=== PATIENT | male | born 1940 | race Caucasian/White ===

== ENCOUNTER 2019-04-01 10:45 | Emergency (ER) | payer OTHER ==
[~2019-04-01] VITALS: Ht 180.3 cm; Wt 106.1 kg
[2019-04-01 10:45] VITALS: BP_SYST 145
[2019-04-01] MEDS ORDERED: BACITRACIN 1 GM OINT TP ONE ×2 (11:45→11:52)
[2019-04-01 12:00] VITALS: BP_SYST 140
== END 2019-04-01 12:00 | disposition home or self-care (01) ==
LOC: SED 10:45
DX: S61.012A Laceration without foreign body of left thumb without damage to nail, initial encounter (principal); R03.0 Elevated blood-pressure reading, without diagnosis of hypertension; Z95.1 Presence of aortocoronary bypass graft; Z86.79 Personal history of other diseases of the circulatory system; Z90.49 Acquired absence of other specified parts of digestive tract; Z85.46 Personal history of malignant neoplasm of prostate; W25.XXXA Contact with sharp glass, initial encounter; Y93.89 Activity, other specified; Y92.89 Other specified places as the place of occurrence of the external cause; Y99.8 Other external cause status
CPT/HCPCS: 99283

== ENCOUNTER 2021-06-16 14:07 | Emergency (ER) | payer OTHER ==
[~2021-06-16] VITALS: Ht 180.3 cm; Wt 111.1 kg
[2021-06-16 14:15] VITALS: BP_SYST 173
--- NOTE | 2021-06-16 14:15 | NUR ---
Patient to ER bed 5 to gown for evaluation. Side rails up.
--- NOTE | 2021-06-16 14:30 | NUR ---
BREE Adamson at bedside examining patient.
[2021-06-16] MEDS ORDERED: KETOROLAC TROMETHAMINE 15 MG VIAL IM ONE (14:45)
[2021-06-16 14:51] LABS: BASOPHILS % (AUTO) 0.5 % (0.0-2.0); EOSINOPHILS # (AUTO) 0.1 K/uL (0.0-0.4); EOSINOPHILS % (AUTO) 1.9 % (0.0-4.0); HEMATOCRIT 36.1 % (36-54); HEMOGLOBIN 12.2 g/dL (14.0-18.0); LYMPHOCYTES # (AUTO) 2.1 K/uL (1.0-5.5); LYMPHOCYTES % (AUTO) 28.5 % (20.5-51.5); MEAN CORPUSCULAR HEMOGLOBIN 30 pg (27-31); MEAN CORPUSCULAR HGB CONC 34 % (32-36); MEAN CORPUSCULAR VOLUME 88 fL (79.0-98.0); MONOCYTES # (AUTO) 0.6 K/uL (0.0-1.0); MONOCYTES % (AUTO) 8.3 % (1.7-9.3); NEUTROPHILS # (AUTO) 4.4 K/uL (1.8-7.7); NEUTROPHILS % (AUTO) 60.8 % (40.0-70.0); PLATELET COUNT (AUTO) 183 K/uL (130-430); RED CELL DISTRIBUTION WIDTH 15.5 % (9.0-15.0); WHITE BLOOD COUNT (AUTO) 7.2 K/uL (4.8-10.8)
[2021-06-16 15:04] LABS: ANION GAP 6 (5-15); CALCIUM 8.9 mg/dL (8.4-11.0); CHLORIDE 96 mmol/L (98-107); CREATININE 0.89 mg/dL (0.55-1.30); GLUCOSE 126 mg/dL (70-99); POTASSIUM 5.3 mmol/L (3.5-5.1); SODIUM SERUM 131 mmol/L (136-145); UREA NITROGEN, BLOOD 18 mg/dL (8-21)
[2021-06-16 15:17] LABS: ALANINE AMINOTRANSFERASE 30 U/L (12-78); ALBUMIN 3.3 g/dL (3.4-4.8); ASPARTATE AMINOTRANSFERASE 26 U/L (10-37); BILIRUBIN,DIRECT 0.2 mg/dL (0.0-0.3); LIPASE 168 U/L (73-393); TOTAL BILIRUBIN 0.4 mg/dL (0.0-1.0)
--- NOTE | 2021-06-16 15:35 | NUR ---
Patient transported to radiology via GURNEY, accompanied by WIRER MAINTENANCE,
[2021-06-16] MEDS ORDERED: NAPR-688 PO (16:29)
[2021-06-16 16:37] VITALS: BP_SYST 173
--- NOTE | 2021-06-16 16:38 | NUR ---
Patient given written and verbal discharge instructions and verbalizes understanding. ER MD discussed with patient the results and treatment provided. Patient in stable condition. ID arm band removed. Rx of NAPROXEN given. Patient educated on pain management and to follow up with PMD. Pain Scale 3/10. Opportunity for questions provided and answered. Medication side effect fact sheet provided.
== END 2021-06-16 16:38 | disposition home or self-care (01) ==
LOC: SED 14:07
DX: M54.5 Low back pain (principal); Z79.899 Other long term (current) drug therapy
CPT/HCPCS: 36415; 74176; 76376; 80048; 80076; 83690; 85025; 96372; 99284; J1885

== ENCOUNTER 2022-06-07 01:07 | Inpatient (IN) | payer OTHER ==
[~2022-06-07] VITALS: Ht 180.3 cm; Wt 104.3 kg
[~2022-06-07 01:07] MED LIST: NAPR-688 PO
--- NOTE | 2022-06-07 01:55 | NUR ---
Pt to ER w/ c/o LLQ abdominal pain 8/10 x 2 hours. Denies n/v/d, denies fevers. Pt ambulates withs strong steady gait. Normal skin color for ethnicity.
[2022-06-07 01:57] VITALS: BP_SYST 86
--- NOTE | 2022-06-07 02:03 | NUR ---
MD Corea and CHARLEE made aware of patient's blood pressure. Ensured appropriate cuff size and placement.
--- NOTE | 2022-06-07 03:00 | NUR ---
LATE ENTRY: Patient received awake, alert x 4. No s/s of distress. Breathing is even and unlabored, denies shortness of breathe. No s/s of active bleeding. Patient still reports left upper quadrant abdominal pain rated 3-4/10 and stated it is tolerable and better from before. Initially patient's BP was on the 80's but now on the 90's -100's. The rest of the vital signs are within acceptable range.
--- NOTE | 2022-06-07 03:20 | NUR ---
Pt placed in bed 1 and report given to Yao GARCIA. Pt placed on quality assurance monitor body and pulse oximetry.
[2022-06-07] MEDS ORDERED: MAG HYDROX/AL HYDROX/SIMETH 30 ML, LIDOCAINE VISCOUS 2% 15ML (PO) 15 ML, DICYCLOMINE HC... PO ONE ×3 (04:00)
--- NOTE | 2022-06-07 04:15 | NUR ---
Pt was taken to Radiology for CT Abdomen.
[2022-06-07 04:21] LABS: BASOPHILS % (AUTO) 0.5 % (0.0-2.0); EOSINOPHILS # (AUTO) 0.2 K/uL (0.0-0.4); HEMOGLOBIN 13.3 g/dL (14.0-18.0); LYMPHOCYTES # (AUTO) 1.7 K/uL (1.0-5.5); LYMPHOCYTES % (AUTO) 21.1 % (20.5-51.5); MEAN CORPUSCULAR HEMOGLOBIN 32 pg (27-31); MEAN CORPUSCULAR HGB CONC 35 % (32-36); MEAN CORPUSCULAR VOLUME 91 fL (79.0-98.0); MONOCYTES # (AUTO) 0.5 K/uL (0.0-1.0); MONOCYTES % (AUTO) 6.4 % (1.7-9.3); NEUTROPHILS # (AUTO) 5.8 K/uL (1.8-7.7); PLATELET COUNT (AUTO) 225 K/uL (130-430); RED BLOOD CELL COUNT(AUTO) 4.18 MIL/uL (4.2-6.2); RED CELL DISTRIBUTION WIDTH 15.2 % (9.0-15.0); WHITE BLOOD COUNT (AUTO) 8.3 K/uL (4.8-10.8)
[2022-06-07] MEDS ORDERED: MORPHINE 4 MG INJ. 4 MG/ML VIAL IVP ONE (04:30)
--- NOTE | 2022-06-07 06:10 | NUR ---
Assisted primary RN with line placement at this time. # 20 gauge angiocath placed to right AC. Use of asceptic technique. Opsite placed over site. Blood return noted. Blood for lab drawn from site. Flushed with 10 cc of normal saline. No evidence of infiltration noted. Patient tolerated well.
[2022-06-07] MEDS ORDERED: cefTRIAXone 1 GM IVPB PREMIX 50 ML IV ONE (06:45)
[2022-06-07] MEDS ORDERED: NS 500 ML IV ONE (07:00)
--- NOTE | 2022-06-07 07:04 | NUR ---
IV NS bolus 500 ml x 1 started as ordered.
--- NOTE | 2022-06-07 07:05 | NUR ---
Patient was also put on O2 therapy at 2 lpm via nasal cannula as SPO2 reads at 91-93%. Patient denies shortness of breathe or dizziness.
--- NOTE | 2022-06-07 07:28 | NUR ---
Hand off report given to JOSE Cummings for continuity of care. Patient is resting comfortably in bed. Reported tolerable pain on LUQ 1-2/10 pain scale. VS are within acceptable range.
--- NOTE | 2022-06-07 07:29 | NUR ---
Received report from JOSE Samayoa. Pt is lying on gurney with eyes closed, VSS, no signs of distress. Will continue to monitor and provide care as ordered.
[2022-06-07] MEDS ORDERED: ICOS1CAP PO (07:57)
[2022-06-07] MEDS ORDERED: ASA81 PO (07:57)
[2022-06-07] MEDS ORDERED: METF-518 PO (07:57)
[2022-06-07] MEDS ORDERED: NEU300 PO (07:57)
[2022-06-07] MEDS ORDERED: ROSU40TA PO (07:57)
[2022-06-07] MEDS ORDERED: RANO10003 PO (07:57)
[2022-06-07] MEDS ORDERED: LEVO25TA7 PO (07:57)
[2022-06-07] MEDS ORDERED: CLOP75TA32 PO (07:57)
[2022-06-07] MEDS ORDERED: ENAL10TA19 PO (07:57)
[2022-06-07] MEDS ORDERED: METO25TA3 PO (07:57)
[2022-06-07] MEDS ORDERED: SITA100T11 PO (07:57)
[2022-06-07 08:20] LABS: SODIUM SERUM 132 mmol/L (136-145)
[2022-06-07 08:22] LABS: ALANINE AMINOTRANSFERASE 24 U/L (12-78); ALBUMIN 3.5 g/dL (3.4-4.8); ANION GAP 5 (5-15); ASPARTATE AMINOTRANSFERASE 21 U/L (10-37); CALCIUM 9.4 mg/dL (8.4-11.0); CHLORIDE 97 mmol/L (98-107); CREATININE 1.27 mg/dL (0.55-1.30); GLUCOSE 125 mg/dL (70-99); TOTAL BILIRUBIN 0.5 mg/dL (0.0-1.0); UREA NITROGEN, BLOOD 25 mg/dL (8-21)
[2022-06-07] MEDS ORDERED: CALCIUM GLUCONATE 1 GM in NS 100 ML IV ONE (09:00)
[2022-06-07] MEDS ORDERED: INSULIN REGULAR, HUMAN 10 UNITS/0.1 ML INJ IVP ONE (09:00)
[2022-06-07] MEDS ORDERED: DEXTROSE 50% JECT 50 ML DISP.SYRIN IVP ONE (09:00)
[2022-06-07] MEDS ORDERED: ALBUTEROL SULFATE 0.083% 2.5 MG/3 ML VIAL.NEB INH ONE (09:00)
[2022-06-07] MEDS ORDERED: CALCIUM GLUCONATE 1 GM/10 ML VIAL ONE (09:13)
[2022-06-07] MEDS ORDERED: ENALAPRIL MALEATE (VASOTEC) Non-Formular 10 MG TABLET PO SCH (09:30)
[2022-06-07] MEDS ORDERED: GABAPENTIN 300 MG CAPSULE PO ONE (09:30)
[2022-06-07] MEDS ORDERED: RANOLAZINE 500 MG TAB.SR.12H PO ONE (09:30)
[2022-06-07] MEDS ORDERED: CLOPIDOGREL BISULFATE 75 MG TABLET PO ONE (09:30)
[2022-06-07] MEDS ORDERED: ASPIRIN 81 MG TAB.CHEW PO ONE (09:30)
[2022-06-07] MEDS ORDERED: ROSUVASTATIN CALCIUM 5 MG/TAB (CRESTOR) PO SCH (09:30)
--- NOTE | 2022-06-07 09:37 | NUR ---
Admit bed requested Patient will be admitted to care of . Admitted to Telemetry unit. Diagnosis Hyperkalemia Inpatient (Yes or No) yes Observation (Yes or No) no Orientation concerns or request close to nursing station (Yes or No) no Covid Status negative On vent or bipap no Isolation requirements no Needs a sitter no From Home (Yes or if No enter name of facility) yes Requires Dialysis (Yes or No) no Med Rec Completed (Yes of No) yes
[2022-06-07] MEDS ORDERED: lisinopriL 20 MG TABLET PO ONE (10:30)
[2022-06-07] MEDS ORDERED: ATORVASTATIN 20 MG TABLET PO ONE (10:45)
--- NOTE | 2022-06-07 12:00 | NUR ---
PT TOOK HOME MEDS FOR CHRONIC ANGINA.
[2022-06-07] MEDS ORDERED: SODIUM ZIRCONIUM CYCLOSILICATE 10 GM POWD.PACK PO ONE (13:00)
--- NOTE | 2022-06-07 13:19 | NUR ---
CALL MADE TO TO INFORM OF PT WANTING TO SING OUT AMA.
--- NOTE | 2022-06-07 13:54 | NUR ---
NOTIFIED DR. ROBERTO THAT PT CHANGED HIS MIND AND WOULD LIKE TO STAY TO BE ADMITTED
--- NOTE | 2022-06-07 14:33 | NUR ---
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
--- NOTE | 2022-06-07 14:34 | NUR ---
CONSULT CARDIOLOGY CHEST PAIN DR COSTA [phone] S/W CLARRISA EXCHANGE
--- NOTE | 2022-06-07 15:13 | NUR ---
Patient will be admitted to care of [facility]. Admitted to Tele unit. Will go to room 134A. Belongings list completed. Complete and up to date summary report printed. SBAR report to be given at bedside with opportunity for questions.
[2022-06-07 15:56] LABS: LIPASE 147 U/L (73-393)
[2022-06-07 16:20] VITALS: BP_SYST 121
[2022-06-07] MEDS ORDERED: SODIUM POLYSTYRENE SULFONATE 15 GM/60 ML UDBTL PO ONE (16:45)
[2022-06-07 17:03] LABS: ANION GAP 7 (5-15); CALCIUM 9.1 mg/dL (8.4-11.0); CHLORIDE 101 mmol/L (98-107); GLUCOSE 124 mg/dL (70-99); POTASSIUM 4.7 mmol/L (3.5-5.1); SODIUM SERUM 138 mmol/L (136-145); UREA NITROGEN, BLOOD 25 mg/dL (8-21)
[2022-06-07 17:04] LABS: CREATININE 1.15 mg/dL (0.55-1.30)
[2022-06-07] MEDS: GABAPENTIN 300 MG CAPSULE PO SCH ×2 (18:05→21:52)
[2022-06-07 18:54] VITALS: BP_SYST 131
--- NOTE | 2022-06-07 19:40 | NUR ---
Opening note Received patient resting in bed, awake. No distress, nonlabored breathing on C-Pap. He denies pain. Top right rail was down and I placed it up. I reviewed call light and he verbalized understanding. I informed him I wound come back between 9-10 pm with medications and he was concerned about what I was going to give; he states that he "does not take meds at night and he wants me to make sure that I got the right patient".
[2022-06-07 20:00] VITALS: BP_SYST 111
[2022-06-07] MEDS ORDERED: RANOLAZINE 500 MG TAB.SR.12H PO SCH (21:00)
[2022-06-07] MEDS ORDERED: METOPROLOL SUCCINATE 25 MG TAB.SR.24H (TOPROL XL) PO SCH (21:00)
--- NOTE | 2022-06-07 21:52 | NUR ---
Meds Patient resting in bed. Top right side rail is down again. I reminded him that we keep two rails up and he refused. He said he wants it down. Presently denies pain and adds that he is going home tommorrow. Scheduled meds given. Patient has C-pap; he removed momentarily and sat up to take meds. He swallowed tablets/capsule with water. He said please don't disturb me, I did not get sleep last night and I just want to sleep. I informed him, only need V/S for midnight and he replied good night.
[2022-06-08 00:16] VITALS: BP_SYST 124
--- NOTE | 2022-06-08 03:56 | NUR ---
Rounds, resting Patient is resting w/eyes closed. Continues to wear C-pap. Symmetrical rise and fall of chest noted. Call light w/in reach.
--- NOTE | 2022-06-08 06:30 | NUR ---
Scheduled med. Refusing telemetry box Patient refused telemetry box; he stated "I got an EKG, this morning, this has been on enough, they have enough pictures". Scheduled med, Synthroid was given; he was cooperative and took tablet. He is sitting up, no longer on CPAP and wants NC. He is saturating at 95% on 3L NC.
[2022-06-08] MEDS ORDERED: LEVOTHYROXINE SODIUM 0.05 MG TABLET PO SCH (07:00)
--- NOTE | 2022-06-08 08:25 | NUR ---
AMA: Patient does not wish to proceed with medical care recommended by DR ROBERTO. Patient given information related to possible complications, up to and including , which could occur as a result of leaving hospital at this time. Patient verbalizes understanding of risks involved leaving against medical advice. Patient has signed AMA form. IV ACCESS REMOVED. LEFT BUILDING AMBULATORY ACCOMPANIED BY SECURITY.
[2022-06-08] MEDS ORDERED: ASPIRIN 81 MG TAB.CHEW PO SCH ×2 (09:00)
[2022-06-08] MEDS ORDERED: CLOPIDOGREL BISULFATE 75 MG TABLET PO SCH (09:00)
[2022-06-08] MEDS ORDERED: lisinopriL 20 MG TABLET PO SCH (09:00)
[2022-06-08] MEDS ORDERED: ATORVASTATIN 20 MG TABLET PO SCH (09:00)
== END 2022-06-08 14:51 | disposition left against medical advice (07) | DRG 641 ==
LOC: SED 01:07 → STU 09:18
PROVIDERS: ADMIT Family Medicine; ATTEND Family Medicine
DX: E87.5 Hyperkalemia (principal); I10 Essential (primary) hypertension; E03.9 Hypothyroidism, unspecified; E78.5 Hyperlipidemia, unspecified; I25.10 Atherosclerotic heart disease of native coronary artery without angina pectoris; N28.1 Cyst of kidney, acquired; Z20.822 Contact with and (suspected) exposure to COVID-19; Z95.1 Presence of aortocoronary bypass graft; Z87.11 Personal history of peptic ulcer disease; Z85.46 Personal history of malignant neoplasm of prostate; Z87.891 Personal history of nicotine dependence; Z90.49 Acquired absence of other specified parts of digestive tract
CPT/HCPCS: 36415; 71045; 76376; 80048; 80053; 83605; 83690; 83880; 84484; 85025; 87040; 93005; 94640; 96365; 96375; 99285; G0378; J0610; J0696; J1815; J2001; J2270; J7613

== ENCOUNTER 2023-02-08 09:30 | Emergency (ER) | payer MEDICARE, OTHER ==
[~2023-02-08] VITALS: Ht 167.6 cm; Wt 81.6 kg
[2023-02-08 09:30] VITALS: BP_SYST 177
[~2023-02-08 09:30] MED LIST changes: +ASA81 PO; +CLOP75TA32 PO; +ENAL-77 PO; +ICOS1CAP PO; +LEVO25TA7 PO; +METF-518 PO; +METO25TA3 PO; -NAPR-688 PO; +NEU300 PO; +RANO10003 PO; +ROSU40TA PO; +SITA100T11 PO
--- NOTE | 2023-02-08 09:31 | NUR ---
Placed in room 08 . Placed on telemetry monitor, blood pressure machine and pulse oximeter. To gown for exam. Side rails up. Report given to Fanny GARCIA .
--- NOTE | 2023-02-08 09:45 | NUR ---
CONCUR W/ ABOVE NOTE. COMFORT MEASURES AND SUPPORTIVE CARE CONTINUED. PT ANXIOUS, BUT TOLERATING TX WELL. ADDITIONAL IV ESTABLISHED, LAB DRAWN, EKG DONE. PENDING RESULTS OF DIAGNOSTIC STUDIES. PT AGREES WITH PLAN OF CARE. TO CONTINUE TO MONITOR.
[2023-02-08 10:07] LABS: BASOPHILS % (AUTO) 0.3 % (0.0-2.0); EOSINOPHILS # (AUTO) 0.1 K/uL (0.0-0.4); EOSINOPHILS % (AUTO) 0.8 % (0.0-4.0); HEMATOCRIT 32.8 % (36-54); HEMOGLOBIN 10.4 g/dL (14.0-18.0); LYMPHOCYTES # (AUTO) 2.1 K/uL (1.0-5.5); LYMPHOCYTES % (AUTO) 18.2 % (20.5-51.5); MEAN CORPUSCULAR HEMOGLOBIN 25 pg (27-31); MEAN CORPUSCULAR HGB CONC 32 % (32-36); MEAN CORPUSCULAR VOLUME 79 fL (79.0-98.0); MONOCYTES # (AUTO) 0.6 K/uL (0.0-1.0); MONOCYTES % (AUTO) 5.5 % (1.7-9.3); NEUTROPHILS # (AUTO) 8.5 K/uL (1.8-7.7); NEUTROPHILS % (AUTO) 75.2 % (40.0-70.0); PLATELET COUNT (AUTO) 270 K/uL (130-430); RED BLOOD CELL COUNT(AUTO) 4.17 MIL/uL (4.2-6.2); RED CELL DISTRIBUTION WIDTH 20.3 % (9.0-15.0); WHITE BLOOD COUNT (AUTO) 11.3 K/uL (4.8-10.8)
[2023-02-08 10:09] LABS: ANION GAP 7 (5-15); CHLORIDE 98 mmol/L (98-107); CREATININE 1.36 mg/dL (0.55-1.30); GLUCOSE 172 mg/dL (70-99); UREA NITROGEN, BLOOD 34 mg/dL (8-21)
--- NOTE | 2023-02-08 10:16 | NUR ---
PORTABLE XRAY AT THE BEDSIDE
[2023-02-08] MEDS: FUROSEMIDE 40 MG/4 ML VIAL IVP ONE (10:18)
[2023-02-08 10:21] LABS: INR 1.1 (0.80-1.20); PROTHROMBIN TIME 11.3 SECS (9.5-12.5)
[2023-02-08 10:29] LABS: ALANINE AMINOTRANSFERASE 26 U/L (12-78); ALBUMIN 3.6 g/dL (3.4-4.8); ASPARTATE AMINOTRANSFERASE 34 U/L (10-37); TOTAL BILIRUBIN 0.6 mg/dL (0.0-1.0)
[2023-02-08] MEDS: NITROGLYCERIN 0.4 MG TAB.SUBL SL ONE (10:34)
[2023-02-08] MEDS: MORPHINE 4 MG INJ. 4 MG/ML VIAL IVP ONE (10:34)
--- NOTE | 2023-02-08 11:00 | NUR ---
PT STATES FEELING MUCH BETTER. ABLE TO TOLERATE BEING ON N/C W/O SOB. TO CONTINUE TO MONITOR. NAD.
[2023-02-08] MEDS ORDERED: methylPREDNISolone SOD SUCC/PF 62.5 MG/ML VIAL IVP ONE (12:00)
[2023-02-08] MEDS ORDERED: APIX5TAB PO (12:11)
[2023-02-08] MEDS ORDERED: HYDR-3925 PO (12:11)
[2023-02-08] MEDS ORDERED: EMPA25TA PO (12:11)
[2023-02-08] MEDS ORDERED: ISOS30TA85 PO (12:11)
[2023-02-08] MEDS ORDERED: GLIP5TAB13 PO (12:11)
[2023-02-08] MEDS ORDERED: DABI110C PO (12:11)
[2023-02-08] MEDS ORDERED: IPRA3AMP9 HHN (12:11)
[2023-02-08] MEDS ORDERED: CLOB15CR4 TP (12:11)
[2023-02-08] MEDS ORDERED: PANT40TA45 PO (12:11)
[2023-02-08] MEDS ORDERED: FURO40TA5 PO (12:11)
[2023-02-08] MEDS: IPRATROPIUM/ALBUTEROL SULFATE 3 ML AMPUL.NEB (DUONEB) INH ONE (12:12)
--- NOTE | 2023-02-08 12:30 | NUR ---
PT STATES "I'M NOT STAYING...I KNOW WHAT THE PROBLEM IS...I'M LEAVING...YOU CAN'T KEEP ME". INFORMED PT OF HIS RIGHT TO REFUSE MEDICAL TREATMENT. REITERATED THAT HE IS A PATIENT AND NOT A PRISONER. DR. CASEY SUMMONED TO BEDSIDE. PT DEEMED TO BE OF SOUND MIND WITH COMPLETE ORIENTATION. HE ADAMANT ABOUT LEAVING AND NOT BEING ADMITTED. 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 AGAIN ALL ADMONISHMENT, PT ELECTS TO LEAVE. PT BECOMING MORE UBSET WHEN ADMISSION DISCUSSED.
[2023-02-08 12:37] VITALS: BP_SYST 121
--- NOTE | 2023-02-08 13:30 | NUR ---
INSTRUCTED PT TO HAVE HOLLIS BRING HIS 02 TANK IF POSSIBLE TO FACILITATE PT RETURN HOME SAFELY. PT STATES HOLLIS WILL [facility] [employer] SPECIALIST TANK PRIOR TO ARRIVAL TO ED. PT REMAINS COMMITTED TO LEAVING. INFORMED PT THAT I WOULD REMOVE IV AND F/C UPON GRANDSON ARRIVAL IN THE EVENT AN UNFORSEEN INCIDENT OCCUR. PT AGREES WITH PLAN OF CARE LEADING TO D/C.
--- NOTE | 2023-02-08 14:40 | NUR ---
AWAIT ARRIVAL OF GRANDSON. CONTINUED CARE ENDORSED TO NANCY GARCIA FOR LUNCH COVERAGE. WILL AMA WHEN GRANDSON ARRIVES.
--- NOTE | 2023-02-08 15:10 | NUR ---
UPON RETURN FROM BREAK RELIEF. PT IV HL & FC REMOVED BY ANNA GARCIA. PT SO ANGRY PER ANNA THAT HE REFUSED TO SIGN AMA FORM AND WHEELED OUT BY HOLLIS.
== END 2023-02-08 15:10 | disposition left against medical advice (07) ==
LOC: SED 09:30 → UNDOADMIN 11:58 → STU 11:58 → UNDODISIN 15:10
DX: R06.02 Shortness of breath (principal); I11.0 Hypertensive heart disease with heart failure; I50.9 Heart failure, unspecified; E11.9 Type 2 diabetes mellitus without complications; Z79.899 Other long term (current) drug therapy; Z20.822 Contact with and (suspected) exposure to COVID-19
CPT/HCPCS: 99291; 71045; 96375; 87426; 80053; 82550; 83880; 85025; 85610; 85730; 84484; 36415; 93005; 94640; 94760; 94660; 87804 ×2; 96374; J1940; J2270; G0378